=== PATIENT | female | born 1995 | race African-American/Black ===

== ENCOUNTER 2017-11-16 20:58 | Emergency (ER) | payer OTHER ==
[~2017-11-16] VITALS: Ht 162.6 cm; Wt 103.0 kg
[2017-11-17] MEDS ORDERED: IBUPROFEN 800MG TABLET PO ONE (00:15)
[2017-11-17 01:15] LABS: BASOPHILS % 0.5 % (0.0-2.0); EOSINOPHILS % 2.1 % (0.0-5.0); HEMATOCRIT. 33.2 % (36.0-48.0); HEMOGLOBIN. 9.9 g/dL (12.0-16.0); LYMPHOCYTES % 25.5 % (20.0-50.0); MEAN CORPUSCULAR HEMOGLOBIN 19.9 pg (28.0-32.0); MEAN CORPUSCULAR VOLUME 66.5 fL (81.0-99.0); MEAN PLATELET VOLUME 9.4 fl (7.4-10.4); MONOCYTES % 7.6 % (2.0-8.0); NEUTROPHILS % 64.3 % (40.0-76.0); PLATELET 244 x1000/uL (130-400); RED CELL DISTRIBUTION WIDTH 19.6 % (11.6-14.6)
[2017-11-17 01:17] LABS: CHLORIDE 106 mEq/L (98-107)
[2017-11-17 01:53] LABS: CLARITY URINE CLOUDY (CLEAR); COLOR URINE YELLOW (YELLOW); KETONES URINE NEGATIVE (NEGATIVE); LEUKOCYTE ESTERASE URINE 3+ (NEGATIVE); NITRITE URINE NEGATIVE (NEGATIVE); OCCULT BLOOD URINE NEGATIVE (NEGATIVE); PROTEIN URINE NEGATIVE (NEGATIVE); SPECIFIC GRAVITY URINE 1.019 (1.005-1.030)
[2017-11-17 02:35] VITALS: BP 126/78
[2017-11-17 03:18] LABS: PLATELET ESTIMATE NORMAL
== END 2017-11-17 02:53 | disposition home or self-care (01) ==
LOC: ER 20:58
DX: R51 Headache (principal); N39.0 Urinary tract infection, site not specified; D64.9 Anemia, unspecified; N76.0 Acute vaginitis; Z98.890 Other specified postprocedural states; B37.9 Candidiasis, unspecified; H53.8 Other visual disturbances
CPT/HCPCS: 36415; 80048; 81003; 81025; 85025; 87086; 87106; 99284